=== PATIENT | male | born 2000 | race African-American/Black ===

== ENCOUNTER 2024-01-20 19:59 | Outpatient (REF) | payer OTHER, SELFPAY ==
--- NOTE | ~2024-01-20 | MR_ITS ---
EXAMINATION: MRI FOOT WITHOUT CONTRAST, RIGHT CLINICAL INFORMATION: Pain. Patient reports football injury 3 weeks ago. COMPARISON: None. TECHNIQUE: MRI without contrast is performed on the right foot. FINDINGS: There is marrow edema throughout much of the medial cuneiform including at the attachment of the Lisfranc ligament. On the coronal sequence, there appears to be at least a partial tear of the Lisfranc ligament at the cuneiform attachment. CT could better assess for a small cortical avulsion. Surrounding soft tissue edema including edema around the interosseous ligaments across the midfoot and distal slips of the peroneal longus and posterior tibialis tendons compatible with a midfoot sprain. There is mild marrow edema of the mid 2nd metatarsal, which may be related to the injury or may be stress related. Small effusion of the calcaneocuboid joint projecting laterally. Flexor and extensor tendons appear intact. Visualized plantar fascia is intact. MR/MR foot RT wo con IMPRESSION: Findings suggest a recent midfoot sprain. At least partial tearing of the Lisfranc ligament at its cuneiform attachment is suspected. Consider CT to assess for small cortical avulsion fracture. Possible mild stress reaction of the 2nd metatarsal. Electronically signed by: Steve Driscoll MD 01/21/2024 08:50 AM EDT RP
== END 2024-01-20 20:00 | disposition home or self-care (01) ==
LOC: HO.MRI 19:59
PROVIDERS: Visit Provider Student in an Organized Health Care Education/Training Program
DX: M79.671 Pain in right foot (principal)
CPT/HCPCS: 73718